=== PATIENT | female | born 1990 ===

== ENCOUNTER 2022-08-13 13:51 | Outpatient (CLI) | payer OTHER | END 2022-08-13 15:11 | disposition home or self-care (01) | LOC: PRENATAL 13:51 | PROVIDERS: ATTEND Obstetrics & Gynecology Maternal & Fetal Medicine | DX: O35.9XX0 Maternal care for (suspected) fetal abnormality and damage, unspecified, not applicable or unspecified (principal); O35.3XX0 Maternal care for (suspected) damage to fetus from viral disease in mother, not applicable or unspecified; Z3A.20 20 weeks gestation of pregnancy ==

== ENCOUNTER 2022-12-09 13:54 | Inpatient (IN) | payer OTHER ==
[~2022-12-09] VITALS: Ht 172.7 cm; Wt 91.2 kg
[2023-01-03] MEDS ORDERED: PROBIOTIC250 MG PO (08:16)
[2023-01-03] MEDS ORDERED: PRENATAL + DHA1 EAC1 PO (08:16)
[2023-01-05] MEDS ORDERED: IBUPROFEN800 MG PO (09:51)
== END 2023-01-05 10:57 | disposition home or self-care (01) | DRG 807 ==
LOC: OB/GYN 12-31 13:30 → LDR 01-03 07:12 → OB/GYN 01-03 17:16
PROVIDERS: ADMIT Specialist; ATTEND Specialist
PROC: 0UQG7ZZ Repair Vagina, Via Natural or Artificial Opening (ICD-10-PCS; 2023-01-03)
PROC: 4A1HXCZ Monitoring of Products of Conception, Cardiac Rate, External Approach (ICD-10-PCS; 2023-01-03)
PROC: 0W8NXZZ Division of Female Perineum, External Approach (ICD-10-PCS; 2023-01-03)
PROC: 10E0XZZ Delivery of Products of Conception, External Approach (ICD-10-PCS; principal; 2023-01-03 17:45)
DX: O71.4 Obstetric high vaginal laceration alone (principal); Z37.0 Single live birth; Z3A.40 40 weeks gestation of pregnancy; Z20.822 Contact with and (suspected) exposure to COVID-19